=== PATIENT | male | born 1955 | race Caucasian/White ===

== ENCOUNTER 2018-05-22 19:28 | Observation (INO) ==
--- NOTE | 2018-05-22 20:04 | Emergency Department Note ---
Disposition Clinical Impression: Shortness of breath Disposition: Still a Patient Condition: Fair Reasons to Return/Additional Instructions: Referrals: Joe Kovacs DO [Primary Care Provider] - Time of Disposition: 21:09 SOB HPI - General Chief Complaint: ED Shortness of Breath/Dyspnea Stated Complaint: REG Time Seen by Provider: 05/22/18 19:36 Source: patient Limitations: no limitations Nursing Notes Reviewed: Yes Vital Signs Reviewed: Yes - History of Present Illness 63 year old male presents for difficulty breathing "on the right side." Patient states that on 3 days ago, he was pulled trash out of the garbage and felt a rip. Since, he's had difficulty laying on right side and had difficulty breathing. Today, patient was sitting after eating when shortness of breath worsened suddenly. Patient's made him come to ED because he has history of DVT 4 years ago. He is not on a blood thinner. Patient states that shortness of breath worsens with deep breathing, movement, or pressure to the right side of his back. Describes sharp pain 7-8/10. States that today, pain radiated from right infrascapular region up to right shoulder. Today, patient had shortness of breath with climbing stairs. Patient is not sure if he felt short of breath due to pain from moving or from the exertion of climbing stairs. Tried tylenol which helped. Denies leg swelling, cough, hemoptysis, chest pain, fever/chills, leg pain, orthopnea, PND. Medical history of DVT in left leg 4 years ago. Denies any other medical history. - Related Data Previous Rx's Medication Instructions Recorded Cyclobenzaprine [Flexeril] 10 mg PO HS #15 tablet 09/05/15 Hydrocodone/Acetaminophen [[place] 1 tab PO TID PRN #4 tab 09/05/15 5-325 Tablet] Ondansetron ODT [Zofran ODT] 4 mg SL Q6HR #15 tab.rapdis 08/10/16 Allergies Allergy/AdvReac Type Severity Reaction Status Date / Time Hydromorphone [From Dilaudid] Allergy Vomiting Verified 08/10/16 05:58 Penicillins [PCN] Allergy Rash Verified 08/10/16 05:58 Constitutional: Denies: fever, chills Eyes: Denies: eye pain, eye discharge ENT ED: Denies: ear pain, throat pain Cardiovascular: Denies: chest pain, palpitations Respiratory: Reports: dyspnea. Denies: cough Gastrointestinal: Denies: abdominal pain, nausea Genitourinary: Denies: urgency, dysuria Musculoskeletal: Reports: back pain. Denies: neck pain Integumentary: Denies: rash, abrasion Neurological: Denies: headache, weakness Past Medical History - Past Medical History Medical history: Reports: DVT, hyperlipidemia, hypertension Psychiatric history: Reports: no psych history - Social History Smoking Status: Never smoker Smokeless Tobacco Status: No Alcohol use: Reports: none Drug use: Reports: none Physical Exam - General Limitations: no limitations General appearance: alert - Head Head exam: atraumatic, normocephalic - Eye Eye exam: Present: PERRL, EOMI - ENT ENT exam: normal oropharynx - Neck Neck exam: Present: normal inspection - Chest Chest inspection: Present: normal inspection, symmetric chest wall rise. Absent: tenderness - Respiratory Respiratory exam: Present: normal lung sounds bilaterally. Absent: respiratory distress - Cardiovascular Cardiovascular exam: Present: regular rate, normal rhythm - Abdominal Exam Abdominal exam: Present: soft, Non-Tender, normal bowel sounds. Absent: distention, guarding, rebound, rigidity - Extremities Exam Extremities exam: Present: normal inspection. Absent: tenderness, pedal edema, joint swelling - Back Exam Back exam: Present: normal inspection. Absent: tenderness, muscle spasm - Neurological Exam Neurological exam: Present: alert, oriented X3 - Skin Skin exam: Present: warm, dry, intact, normal color Course Course Narrative: 63 year old male with history of DVT (not on a blood thinner) presents for difficulty breathing. Patient states it started 3 days ago when he pulled trash out and felt a rip in his right back. Difficulty breathing worsened suddenly today while sitting. Pain is worse with deep breathing, movement, and with pressure to the right back. Patient is alert and oriented and hemodynamically stable. Respiratory rate of 18 and oxygen saturation 100% on room air. Patient does not appear to be in respiratory distress. Physical exam is unremarkable. Back appears normal. Pain is not reproduced with palpation to right infrascapular region or to the right shoulder. Lungs are clear. Will check CXR, D-dimer, and EKG. - Reevaluation(s) Reevaluation #1: EKG shows no acute ischemic changes. CXR is negative. D-dimer is elevated at 4904. Will order CTA chest. Will sign out to night team. Time: 21:00 Vital Signs Temperature 98.4 F 05/22/18 19:31 Pulse Rate 99 05/22/18 19:31 Respiratory Rate 18 05/22/18 19:31 Blood Pressure 143/93 05/22/18 19:31 O2 Sat by Pulse Oximetry 100 05/22/18 19:31 Temperature 98.4 F 05/22/18 19:40 Pulse Rate 99 05/22/18 19:40 Respiratory Rate 18 05/22/18 19:40 Blood Pressure 143/93 05/22/18 19:40 O2 Sat by Pulse Oximetry 100 05/22/18 19:40 Oxygen Delivery Oxygen Delivery Room Air Shortness of Breath/Dyspnea - MDM Narrative Medical decision making narrative: Chest X-Ray 05/22/18 20:05 IMPRESSION: Patchy right basilar opacity likely atelectasis. D/ / Marisela Rose MD / Marisela Rose MD Interpreting Provider: Marisela Rose MD - Medical Records Medical records reviewed: Yes I reviewed the patient's medical records. - Lab Data Lab results reviewed: Yes I reviewed the patient's lab results. - Radiology Data Radiology results reviewed: Yes I reviewed the patient's radiology results. - EKG Data EKG attestation: Yes I reviewed and interpreted this EKG. EKG results narrative: EKG 05/22/18 19:38. Sinus rhythm. Heart rate 81. No ST segment elevation or depression. No significant change from prior EKG 09/29/13.
--- NOTE | 2018-05-22 20:07 | Emergency Department Note ---
Disposition Clinical Impression: Muscle strain, Shortness of breath Disposition: Still a Patient Condition: Good Reasons to Return/Additional Instructions: Referrals: Joe Kovacs DO [Primary Care Provider] - Forms: ED Satisfaction Letter General Adult HPI - General Chief complaint: ED Shortness of Breath/Dyspnea Stated complaint: REG Time Seen by Provider: 05/22/18 19:36 Source: patient Limitations: no limitations - History of Present Illness Pain Scale: 7 - Related Data Previous Rx's Medication Instructions Recorded Cyclobenzaprine [Flexeril] 10 mg PO HS #15 tablet 09/05/15 Hydrocodone/Acetaminophen [[place] 1 tab PO TID PRN #4 tab 09/05/15 5-325 Tablet] Ondansetron ODT [Zofran ODT] 4 mg SL Q6HR #15 tab.rapdis 08/10/16 Allergies Allergy/AdvReac Type Severity Reaction Status Date / Time Hydromorphone [From Dilaudid] Allergy Vomiting Verified 08/10/16 05:58 Penicillins [PCN] Allergy Rash Verified 08/10/16 05:58 Past Medical History - Past Medical History Medical history: Reports: DVT, hyperlipidemia, hypertension Psychiatric history: Reports: no psych history - Social History Smoking Status: Never smoker Smokeless Tobacco Status: No Alcohol use: Reports: none Drug use: Reports: none Physical Exam - General Limitations: no limitations General appearance: alert Course Vital Signs Temperature 98.4 F 05/22/18 19:31 Pulse Rate 99 05/22/18 19:31 Respiratory Rate 18 05/22/18 19:31 Blood Pressure 143/93 05/22/18 19:31 O2 Sat by Pulse Oximetry 100 05/22/18 19:31 Temperature 98.4 F 05/22/18 19:40 Pulse Rate 99 05/22/18 19:40 Respiratory Rate 18 05/22/18 19:40 Blood Pressure 143/93 05/22/18 19:40 O2 Sat by Pulse Oximetry 100 05/22/18 19:40 Oxygen Delivery Oxygen Delivery Room Air Medical Decision Making - Lab Data Lab Results 05/22/18 Range/Units 20:16 D-Dimer 4904 H (0-500) ng/mLFEU Attestation Statement - Attestation Attestation: I examined this patient and my medical decision-making was reviewed with the RADIOGRAPHER MAMMOGRAPHER/PA/Advanced Practice Nurse/Resident Physician. I agree with the documented findings, disposition and treatment plan as described except to the extent set forth below. Patient was taking out the trash on Saturday and thought that he strained his flank area and now when he lays down he does have pain there. Worse with breathing. Has had some dyspnea with exertion since that time. No orthopnea or paroxysmal nocturnal dyspnea. I am not able to reproduce the pain with palpation but it does occur with the patient does have range of motion of the torso. His EKG shows normal sinus rhythm with a rate of 81 bpm without evidence of ischemic change. D-dimer was ordered as well as a chest x-ray. Results are pending. Likely this is musculoskeletal in etiology. 2006 D-dimer is positive. CTA is ordered. No labs are necessary at this time. I did discuss this with air conditioning service technician and they will come over and get the patient. Care will be transitioned to Dr. Karen willams at change of shift 2110
[2018-05-22] MEDS ORDERED: Isovue-370 500 ML INFUS..BTL IV ONE (20:52)
[2018-05-22] MEDS ORDERED: *HR* Heparin 5,000 UNIT/ML VIAL IVP ONE (21:57)
[2018-05-22] MEDS ORDERED: *HR* Heparin 5,000 UNIT/ML VIAL IVP PRN ×2 (21:57)
[2018-05-22] MEDS ORDERED: Heparin 25,000 UNIT/500 ML D5W 25,000 UNIT/500 ML BAG IVC SCH (22:00)
[2018-05-22 22:06] LABS: INR 1.2
[2018-05-22 22:07] LABS: Basophils % 0.4 %; Eosinophils # 0.2 K/mcL (0.0-0.6); Eosinophils % 1.9 %; Hematocrit 41.1 % (37.5-50.1); Hemoglobin 13.5 g/dL (12.9-16.9); Immature Granulocytes % 0.1 % (0-4); Lymphocytes # 1.3 K/mcL (0.6-4.6); Lymphocytes % 12.4 %; Mean Corpuscular HGB Conc 32.8 g/dL (31.6-35.5); Mean Corpuscular Hemoglobin 31.2 pg (28.0-33.3); Mean Corpuscular Volume 94.9 fL (83.0-100.0); Mean Platelet Volume 11.5 fL (9.4-12.4); Monocytes % 9.7 %; Neutrophils # 7.9 K/mcL (1.6-8.9); Platelet Count 182 K/mcL (140-400); Red Blood Count 4.33 M/mcL (4.19-5.50); Red Cell Distribution Width 12.3 % (11.5-14.5); Segmented Neutrophils % 75.5 %
[2018-05-22 22:08] LABS: Activated Partial Thrombo Time 31.1 Seconds (26.0-36.0)
[2018-05-22 22:19] LABS: BUN/Creatinine Ratio 13 (6-26); Blood Urea Nitrogen 14 mg/dL (8-23); Calcium 9.3 mg/dL (8.6-10.3); Carbon Dioxide 26 mEq/L (23-29); Chloride 101 mEq/L (98-107); Glucose 153 mg/dL (70-105); Osmolality,Calculated 282 (280-300); Potassium 4.2 mEq/L (3.5-5.1); Sodium 134 mEq/L (136-145); Troponin I < 0.03 ng/mL (< 0.04); eGFR For Non-African Americans > 60 (> 60)
--- NOTE | 2018-05-22 22:53 | Emergency Department Note ---
Disposition Clinical Impression: Exertional dyspnea Pulmonary embolism Qualifiers: Pulmonary embolism type: other Chronicity: acute Acute cor pulmonale presence: without acute cor pulmonale Qualified Code(s): I26.99 - Other pulmonary embolism without acute cor pulmonale Disposition: Admitted As Inpatient Condition: Good Time of Disposition: 22:54 General Adult HPI - General Chief complaint: ED Shortness of Breath/Dyspnea Stated complaint: REG Time Seen by Provider: 05/22/18 19:36 Source: patient Limitations: no limitations Nursing Notes Reviewed: Yes Vital Signs Reviewed: Yes - History of Present Illness HPI Narrative: Patient is a 63-year-old male signed out by the night team for rule out. Pulmonary embolism. Upon talking to the patient he states that his symptoms started on Saturday in which she was taking the trash out and as he was lifting a trash can he felt a sudden sharp-like pain in his right chest. He states since that time the pain has been worsening and he is also noted he noticed associated exertional dyspnea when he has been taking the stairs at work. This prompted him to come in to be evaluated. Upon further discussions with the patient he does not have any history of recent surgery, he does have a history of provoked DVT from a leg injury 4 years ago, and also has a history of recent travels to [facility] requiring approximately a 6 hour long car ride round-trip. Pain Scale: 7 - Related Data Home Medications Medication Instructions Recorded Confirmed Multivit-Min/FA/Lycopen/Lutein [A 1 tab PO DAILY 05/22/18 05/22/18 Thru Z [facility] Multivit Tab] Omeprazole [PriLOSEC] 20 mg PO DAILY 05/22/18 05/22/18 Previous Rx's Medication Instructions Recorded Rivaroxaban [Xarelto] 1 dose PO AD 30 Days #1 pack 05/23/18 Allergies Allergy/AdvReac Type Severity Reaction Status Date / Time Hydromorphone [From Dilaudid] Allergy Vomiting Verified 08/10/16 05:58 Penicillins [PCN] Allergy Rash Verified 08/10/16 05:58 All systems ED: reviewed and negative except as stated. Review of Systems: As Per HPI Constitutional: Denies: fever, chills Eyes: Denies: eye pain, eye discharge ENT ED: Denies: ear pain, throat pain Cardiovascular: Denies: chest pain, palpitations Respiratory: Reports: dyspnea. Denies: cough Gastrointestinal: Denies: abdominal pain, nausea Genitourinary: Denies: urgency, dysuria Musculoskeletal: Reports: back pain. Denies: neck pain Integumentary: Denies: rash, abrasion Neurological: Denies: headache, weakness Past Medical History - Past Medical History Attestation: Yes The following information was validated with the patient. Medical history: Reports: DVT, hyperlipidemia, hypertension Psychiatric history: Reports: no psych history - Social History Smoking Status: Never smoker Smokeless Tobacco Status: No Alcohol use: Reports: none Drug use: Reports: none Physical Exam CONSTITUTIONAL: Well-appearing; well-nourished; A&O X 3, in no apparent distress HEAD: Normocephalic; atraumatic EYES: PERRL, no scleral icterus NOSE: The nose is normal in appearance without rhinorrhea NECK: No JVD or distended neck veins RESP: Normal chest excursion with respiration; breath sounds clear and equal bilaterally; no wheezes, rhonchi, or rales CARD: Regular rhythm, without murmurs, rub or gallop ABD: Non-distended; non-tender, soft, without rigidity, rebound or guarding,no pulsatile mass CHEST: No pain with palpation SKIN: Normal for age and race; warm and dry without diaphoresis ; no apparent lesions EXTREMITIES: Pulses are 2 plus and equal times 4 extremities, no peripheral edema or calf muscle pain - General Limitations: no limitations General appearance: alert Course Course Narrative: Patient signed out with pending CTA of the chest. CTA resulted in showed 3 areas of concern for pulmonary embolism. The patient was heparinized and consultation was made with the hospitalist for admission for further treatment of his pulmonary embolism. Otherwise patient's labs were unremarkable and he continues to remain hemodynamically stable. Discussed the plan with the patient and he agrees. Patient was admitted to Dr. Mendoza. Vital Signs Temperature 98.4 F 05/22/18 19:31 Pulse Rate 99 05/22/18 19:31 Respiratory Rate 18 05/22/18 19:31 Blood Pressure 143/93 05/22/18 19:31 O2 Sat by Pulse Oximetry 100 05/22/18 19:31 Temperature 98.0 F 05/23/18 12:13 Pulse Rate 71 05/23/18 12:13 Respiratory Rate 24 05/23/18 07:57 Blood Pressure 119/75 05/23/18 12:13 O2 Sat by Pulse Oximetry 96 05/23/18 12:13 Oxygen Delivery Oxygen Delivery Room Air Medical Decision Making - Medical Records Medical records reviewed: Yes I reviewed the patient's medical records. - Lab Data Lab results reviewed: Yes I reviewed the patient's lab results. Result diagrams: 05/22/18 20:16 05/22/18 20:16 Lab Results 05/22/18 05/22/18 05/22/18 Range/Units 20:16 20:16 20:16 WBC 10.4 (4.3-11.1) K/mcL RBC 4.33 (4.19-5.50) M/mcL Hgb 13.5 (12.9-16.9) g/dL Hct 41.1 (37.5-50.1) % MCV 94.9 (83.0-100.0) fL MCH 31.2 (28.0-33.3) pg MCHC 32.8 (31.6-35.5) g/dL RDW 12.3 (11.5-14.5) % Plt Count 182 (140-400) K/mcL MPV 11.5 (9.4-12.4) fL Immature Gran % 0.1 (0-4) % Seg Neutrophils % 75.5 % Lymphocytes % 12.4 % Monocytes % 9.7 % Eosinophils % 1.9 % Basophils % 0.4 % Neutrophils # 7.9 (1.6-8.9) K/mcL Lymphocytes # 1.3 (0.6-4.6) K/mcL Monocytes # 1.0 (0.0-1.3) K/mcL Eosinophils # 0.2 (0.0-0.6) K/mcL Basophils # 0.0 (0.0-0.2) K/mcL PT 13.0 H (9.4-12.1) Seconds INR 1.2 APTT 31.1 (26.0-36.0) Seconds D-Dimer 4904 H (0-500) ng/mLFEU Heparin Anti-Xa, Unfract (0.30-0.70) IU/mL Sodium 134 L (136-145) mEq/L Potassium 4.2 (3.5-5.1) mEq/L Chloride 101 (98-107) mEq/L Carbon Dioxide 26 (23-29) mEq/L BUN 14 (8-23) mg/dL Creatinine 1.05 (0.70-1.30) mg/dL Est GFR ( Amer) > 60 (> 60) Est GFR (Non-Af Amer) > 60 (> 60) BUN/Creatinine Ratio 13 (6-26) Glucose 153 H (70-105) mg/dL Calculated Osmolality 282 (280-300) Calcium 9.3 (8.6-10.3) mg/dL Troponin I < 0.03 (< 0.04) ng/mL 05/22/18 Range/Units 22:07 WBC (4.3-11.1) K/mcL RBC (4.19-5.50) M/mcL Hgb (12.9-16.9) g/dL Hct (37.5-50.1) % MCV (83.0-100.0) fL MCH (28.0-33.3) pg MCHC (31.6-35.5) g/dL RDW (11.5-14.5) % Plt Count (140-400) K/mcL MPV (9.4-12.4) fL Immature Gran % (0-4) % Seg Neutrophils % % Lymphocytes % % Monocytes % % Eosinophils % % Basophils % % Neutrophils # (1.6-8.9) K/mcL Lymphocytes # (0.6-4.6) K/mcL Monocytes # (0.0-1.3) K/mcL Eosinophils # (0.0-0.6) K/mcL Basophils # (0.0-0.2) K/mcL PT (9.4-12.1) Seconds INR APTT (26.0-36.0) Seconds D-Dimer (0-500) ng/mLFEU Heparin Anti-Xa, Unfract 0.01 L (0.30-0.70) IU/mL Sodium (136-145) mEq/L Potassium (3.5-5.1) mEq/L Chloride (98-107) mEq/L Carbon Dioxide (23-29) mEq/L BUN (8-23) mg/dL Creatinine (0.70-1.30) mg/dL Est GFR ( Amer) (> 60) Est GFR (Non-Af Amer) (> 60) BUN/Creatinine Ratio (6-26) Glucose (70-105) mg/dL Calculated Osmolality (280-300) Calcium (8.6-10.3) mg/dL Troponin I (< 0.04) ng/mL - Radiology Data Radiology results reviewed: Yes I reviewed the patient's radiology results. Chest X-Ray 05/22/18 20:05 IMPRESSION: Patchy right basilar opacity likely atelectasis. D/ / Marisela Rose MD / Marisela Rose MD Interpreting Provider: Marisela Rose MD Chest CTA 05/22/18 20:50 IMPRESSION: Findings compatible pulmonary embolism involving the segmental and lobar branches of the pulmonary artery in the lower lobes and right upper lobe. 0.4 cm pulmonary nodule in the right upper lobe. Hiatal hernia. Findings were discussed with DR VALENCIA at 9:55 pm on 05/22/2018. RECOMMENDATIONS: Fleischner Society guidelines for follow-up and management of incidentally detected pulmonary nodules: Single Solid Nodule: Nodule size less than 6 mm In a low-risk patient, no routine follow-up. In a high-risk patient, optional CT at 12 months. - Low risk patients include individuals with minimal or absent history of smoking and other known risk factors. - High risk patients include individuals with a history or smoking or known risk factors. Radiology 2017 http://pubs.rsna.org/doi/full/10.1148/radiol.[email or web address] D/ / Ayan Dueñas MD / Ayan Dueñas MD Interpreting Provider: Ayan Dueñas MD Echocardiogram 05/23/18 05:27 Impressions: LVEF 60-65%. Normal LV chamber size, wall thickness and function. Mild left ventricular diastolic dysfunction. Normal right ventricular structure and function. Unable to estimate RVSP due to lack of TR jet. No significant valvular dysfunction. Left Ventricular Wall Motion: Rest Echo Findings All wall segments showed normal motion. Findings: Study Quality * Technically adequate exam. ECG Findings * Normal sinus rhythm. Left Ventricle * LVEF 60-65%. * Normal LV chamber size, wall thickness and function. * Mild left ventricular diastolic dysfunction. Right Ventricle * Normal right ventricular structure and function. Left Atrium * Mildly dilated left atrium. Right Atrium * Normal right atrial size. Aortic Valve * Aortic valve not well visualized. * No aortic regurgitation. * No aortic stenosis. Mitral Valve * Normal mitral valve structure and function. * No mitral regurgitation. * No mitral stenosis. Tricuspid Valve * Normal tricuspid valve structure and function. * No tricuspid regurgitation. * Unable to estimate RVSP due to lack of TR jet. Pulmonic Valve * Pulmonic valve not well visualized. Aorta * Normally sized aortic root. Pericardium * The pericardium appears normal. IVC * The IVC is not well evaluated. Pulmonary Artery * Pulmonary artery not well visualized. - EKG Data EKG #1 EKG attestation: Yes I reviewed and interpreted this EKG. EKG results narrative: EKG showed sinus rhythm at a rate of 81 bpm. Normal EKG. Performed at 1938. Attestation Statement - Attestation Attestation: I examined this patient and my medical decision-making was reviewed with the Resident Physician, Dr. Franklin. I agree with the documented findings, disposition and treatment plan as described except to the extent set forth below. Patient is a 63-year-old white male who presented to the emergency Department with complaints of right-sided chest pain and exertional dyspnea. Patient was initially evaluated and worked up by Dr. Forrest who signed out the patient pending CTA of the chest with concerns for possible pulmonary embolus. Patient at the time of sign out was hemodynamically stable and remains such, in no acute distress and no signs of respiratory distress. I agree with patient's physical exam findings as documented. Vital signs are stable. Review of earlier EKG shows a normal sinus rhythm without acute ischemia. We were contacted by the radiologist as the patient had findings of lobar and segmental PE in the right upper, right lower, and left lower lobes. No labs with the exception of d-dimer had been done initially by Dr. Forrest, so we added laboratory panel including CBC, CMP, troponin and coags. Patient's labs were within normal limits and we contacted the hospitalist for admission and initiated heparin protocol. Patient remains hemodynamically stable and resting comfortably at this time patient will be admitted to the hospitalist service.
[2018-05-23] MEDS ORDERED: Naloxone 0.4 MG/ML INJ IVP PRN (05:27)
[2018-05-23] MEDS ORDERED: traMADol 50 MG TABLET PO PRN (05:27)
[2018-05-23] MEDS ORDERED: Acetaminophen 325 MG TABLET PO PRN (05:27)
[2018-05-23] MEDS ORDERED: 0.9 % Sodium Chloride 1,000 ML IVC SCH (05:30)
--- NOTE | 2018-05-23 06:05 | Internal Med History&Physical ---
Date of Encounter: 05/23/18 Time of Encounter: 05:00 Internal Medicine - H&P: HPI Chief complaint: chest pain Admitted From: Emergency Dept Plans for Post Hospital Care: Home History of present illness: Mr. Banks is a 63 year old male who presents to the ER tonight with complaints of pleuritic-type chest pain and splinting. Symptoms started shortly after a prolonged travel by automobile a few days ago. He has a history of DVT several years ago after traumatic injury to his left leg requiring surgery. Once he developed the pleuritic chest pain above, his made him come to ER for concerns of possible PE. In the ER, he had an elevated d-dimer which prompted CT angiogram of the chest. CT angiogram of the chest confirmed bilateral lower lobe PE and right upper lobe PE. He was started on heparin drip and admitted to hospitalist service. Upon my assessment of the patient, he confirms above history. This PE was unprovoked. His initial DVT several years ago was provoked from traumatic injury to his leg. He has never had hypercoagulable workup. With his initial DVT, he had a Mel filter placed, and he was started on Coumadin therapy. He was then later switched to Xarelto and completed 6 months course. He did have his Mel filter removed. Since then, he has not been on anticoag ulation and has had no further DVT or PE until now. Family history is negative for any recurrent DVT or PE. He does not smoke. Past Med Surg Social Fam HX - Past Medical History Attestation: Yes The following information was validated with the patient. Source: patient, old records reviewed, obtained from family Medical history: DVT, hyperlipidemia Psychiatric history: no psych history - Past Surgical History Surgical History: appendectomy, cholecystectomy, orthopedic, other, tonsilectomy Additional surgical history: fundoplasty. esophageal myotomy. lysis of abdominal adhesions - Social History Smoking Status: Never smoker Smokeless Tobacco Status: No Alcohol use: none Drug use: none Current living situation: Home, With Family Activity Level: Independent ambulation Recent Out of Country Travel Within the Last 8 Weeks: No - Family History Mother Hx Family Cancer: Yes Hx Family Endocrine Disorder: Yes Father Hx Family Cardiac Disorders: Yes Internal Medicine - H&P: Meds Multivit-Min/FA/Lycopen/Lutein [A Thru Z Select Multivit Tab] 1 tab PO DAILY 05/22/18 [History] Omeprazole [PriLOSEC] 20 mg PO DAILY 05/22/18 [History] Allergy/AdvReac Type Severity Reaction Status Date / Time Hydromorphone [From Dilaudid] Allergy Vomiting Verified 08/10/16 05:58 Penicillins [PCN] Allergy Rash Verified 08/10/16 05:58 - Constitutional Constitutional: no chills, no fever(s), no night sweats - EENT Eyes: no blurry vision, no change in vision Ears: no ear pain Nose, mouth and throat: no nasal congestion, no sore throat - Cardiovascular Cardiovascular ROS IM: chest pain, dyspnea, dyspnea on exertion, no lightheadedness, no palpitations, no paroxysmal nocturnal dyspnea, no syncope - Respiratory Respiratory: dyspnea, dyspnea on exertion, pain on inspiration, no cough, no hemoptysis - Gastrointestinal Gastrointestinal: no abdominal pain, no diarrhea, no hematemesis, no hematochezia, no melena, no nausea, no vomiting - Genitourinary Genitourinary ROS male: no dysuria, no flank pain, no hematuria - Musculoskeletal Musculoskeletal ROS IM: no arthralgias, no back pain - Integumentary Integumentary IM: no rash, no jaundice - Neurological Neurological ROS: no dizziness, no focal weakness, no frequent falls, no headache(s) - Psychiatric Psychiatric: no anxiety, no depression - Endocrine Endocrine IM: no polydipsia, no polyuria - Allergic/Immunologic Allergic/Immunologic: no GI upset with certain foods - Constitutional Vitals: Temp Pulse Resp BP Pulse Ox 98.2 F 70 15 121/79 95 05/23/18 05:13 05/23/18 05:13 05/23/18 05:13 05/23/18 05:13 05/23/18 05:13 General appearance: Present: cooperative, mild distress, A&O X 3, pleasant, answers questions appropriately Exam: + splinting with deep inspiration - Head Head exam: Present: atraumatic, normal inspection - Eye Eye exam: Present: EOMI, PERRL. Absent: scleral icterus Pupils: Present: normal accommodation - ENT ENT exam: Present: mucous membranes dry, normal exam, normal oropharynx - Neck Neck exam general surgery: Present: full ROM. Absent: tenderness, nuchal rigidity, thyromegaly - Respiratory Respiratory exam: Present: CTAB. Absent: chest wall tenderness, rales, rhonchi, wheezes Additional comments: + splinting with deep inspiration - Cardiovascular Cardiovascular exam: Present: RRR, +S1, +S2. Absent: diastolic murmur, systolic murmur - GI/Abdominal GI/Abdominal exam: Present: normal bowel sounds, soft. Absent: guarding, hepatomegaly, mass, splenomegaly, tenderness - Extremities Exam Extremities exam: Present: full ROM, normal capillary refill, warm, radial pulses palpable and symmetrical. Absent: calf tenderness - Back Exam Back exam: Absent: CVA tenderness (L), CVA tenderness (R) - Neurological Exam Neurological exam: Present: alert, CN II-XII intact, oriented X3, no focal deficits - Psychiatric Psychiatric exam: Present: normal affect, normal mood - Skin Skin exam: Present: dry, intact, warm Internal Med - H&P Results - Labs CBC & Chem 7: 05/22/18 20:16 05/22/18 20:16 Labs: Short CBC 05/22/18 Range/Units 20:16 WBC 10.4 (4.3-11.1) K/mcL Hgb 13.5 (12.9-16.9) g/dL Hct 41.1 (37.5-50.1) % Plt Count 182 (140-400) K/mcL Neutrophils # 7.9 (1.6-8.9) K/mcL BMP 05/22/18 20:16 Sodium 134 L Potassium 4.2 Chloride 101 Carbon Dioxide 26 BUN 14 Creatinine 1.05 Glucose 153 H Calcium 9.3 Cardiac Enzymes 05/22/18 Range/Units 20:16 Troponin I < 0.03 (< 0.04) ng/mL - EKG Data -: EKG Interpreted by Myself - EKG Data Prior EKG available for review: no EKG comments: 05/23/18 06:10 NSR; no acute ST-T changes - Impressions ITS Impressions Chest X-Ray 05/22/18 20:05 IMPRESSION: Patchy right basilar opacity likely atelectasis. D/ / Marisela Rose MD / Marisela Rose MD Interpreting Provider: Marisela Rose MD Chest CTA 05/22/18 20:50 IMPRESSION: Findings compatible pulmonary embolism involving the segmental and lobar branches of the pulmonary artery in the lower lobes and right upper lobe. 0.4 cm pulmonary nodule in the right upper lobe. Hiatal hernia. Findings were discussed with DR VALENCIA at 9:55 pm on 05/22/2018. RECOMMENDATIONS: Fleischner Society guidelines for follow-up and management of incidentally detected pulmonary nodules: Single Solid Nodule: Nodule size less than 6 mm In a low-risk patient, no routine follow-up. In a high-risk patient, optional CT at 12 months. - Low risk patients include individuals with minimal or absent history of smoking and other known risk factors. - High risk patients include individuals with a history or smoking or known risk factors. Radiology 2017 http://pubs.rsna.org/doi/full/10.1148/radiol.8058368397 D/ / Ayan Dueñas MD / Ayan Dueñas MD Interpreting Provider: Ayan Dueñas MD - Diagnostic Studies CT scan - chest Additional comments: Report reviewed: Bilateral PE noted - Assessment and plan (1) Pulmonary embolism Current Visit: Yes Status: Acute Assessment and plan: 1. Patient currently on Heparin drip. 2. Will order ECHO and BLE Dopplers. 3. Can likely switch to NOVEL anticoagulant later today per HEM/ONC approval. 4. Consult HEM/ONC for guidance of anti-coagulation and for proper follow up and hypercoagulable testing. Qualifiers: Pulmonary embolism type: other Chronicity: acute Acute cor pulmonale presence: without acute cor pulmonale Qualified Code(s): I26.99 - Other pulmon ruddy embolism without acute cor pulmonale (2) GERD (gastroesophageal reflux disease) Current Visit: Yes Status: Chronic Assessment and plan: 1. Continue home dose of PPI. 2. Monitor symptoms. Qualifiers: Esophagitis presence: esophagitis presence not specified Qualified Code(s): K21.9 - Gastro-esophageal reflux disease without esophagitis (3) Exertional dyspnea Current Visit: Yes Status: Acute Assessment and plan: 1. Will trend troponins, EKG's, and order ECHO. 2. Cardiac work-up as outpatient if necessary once PE symptoms stabilize. (4) DVT prophylaxis Current Visit: Yes Status: Acute Assessment and plan: 1. Heparin drip as above.
[2018-05-23] MEDS ORDERED: Multivit/Ca/Min/Fe/FA 1 TAB TABLET PO SCH (09:00)
[2018-05-23] MEDS ORDERED: Perflutren Lipid Microsphere 1.3 ML in 0.9 % Sodium Chloride 8.7 ML IVP ONE (11:37)
[2018-05-23] MEDS ORDERED: *HR* Rivaroxaban 10 MG TABLET PO SCH (12:08)
[2018-05-23] MEDS ORDERED: *HR* Rivaroxaban 15 MG TABLET PO SCH (12:15)
[2018-05-23 12:17] VITALS: BP 119/75
--- NOTE | 2018-05-23 12:46 | Event Note ---
Date of Encounter: 05/23/18 Time of Encounter: 12:44 Patient seen and evaluated. reports no distress. admitted due to acute b/l PE. discontinue Heparin drip, started on Xarelto 25mg/PO BID. Hem&Onc consulted by night team. Pending evaluation.
--- NOTE | 2018-05-23 14:08 | Discharge Summary ---
- NOTES TO OUTPATIENT PROVIDER Notes to Outpatient Provider: Follow-up with hematology oncology within a week of hospital discharge. Orders not resulted at time of discharge: Pending orders 05/22/18 21:55 ECG 12 lead ECG [ECG] Stat 05/23/18 05:27 EV venous imaging LE BI Routine 05/23/18 18:11 Troponin I Q6H 05/24/18 04:00 Basic Metabolic Panel AM 0400 Complete Blood Count [HEME] AM 0400 Magnesium AM 0400 Date of Encounter: 05/23/18 Time of Encounter: 14:04 - Discharge Diagnosis (1) Pulmonary embolism Priority: Primary Status: Acute Qualifiers: Pulmonary embolism type: other Chronicity: acute Acute cor pulmonale presence: without acute cor pulmonale Qualified Code(s): I26.99 - Other pulmonary embolism without acute cor pulmonale (2) Exertional dyspnea Priority: Secondary Status: Resolved (3) GERD (gastroesophageal reflux disease) Priority: Secondary Status: Chronic Qualifiers: Esophagitis presence: esophagitis presence not specified Qualified Code(s): K21.9 - Gastro-esophageal reflux disease without esophagitis (4) DVT prophylaxis Priority: Secondary Status: Acute Hospital course: Mr. Banks is a 63 year old male past medical history of DVT, hyperlipidemia. Patient presented to the emergency room complaining of pleuritic chest pain. Patient reported recent travel of 9 hours long. A CTA of the chest was done which confirmed bilateral lower lobe pulmonary embolism and right upper lobe pulmonary embolism. Patient admitted to the hospital and started on heparin drip. Medications switch to Xarelto 15mg/PO BID for 21 days, and to continue Xarelto 20mg/po daily afterwards. Heme&Onc consulted recommended to follow up with them outpatient. Patient is hemodynamically stable to be discharged home. - Time Spent with Patient Total time spent providing and/or coordinating discharge services: Less than 30 minutes - Discharge Medications Prescriptions: Rivaroxaban [Xarelto] 1 dose PO AD 30 Days #1 pack Home Medications: Multivit-Min/FA/Lycopen/Lutein [A Thru Z Select Multivit Tab] 1 tab PO DAILY 05/22/18 [History] Omeprazole [PriLOSEC] 20 mg PO DAILY 05/22/18 [History] Rivaroxaban [Xarelto] 1 dose PO AD 30 Days #1 pack 05/23/18 [Rx] Allergies/Adverse Reactions: Allergy/AdvReac Type Severity Reaction Status Date / Time Hydromorphone [From Dilaudid] Allergy Vomiting Verified 08/10/16 05:58 Penicillins [PCN] Allergy Rash Verified 08/10/16 05:58 Date of admission: 05/22/18 23:53 Primary care physician: Joe Kovacs Consults: 05/23/18 05:27 Consult to Oncology [CONS] Routine Consulting Provider: [facility] Reason for Consult: recurrent VTE, now w PE -- unprovoked Call Completed: No - Constitutional Vitals: Temp Pulse Resp BP Pulse Ox 98.0 F 71 24 119/75 96 05/23/18 12:13 05/23/18 12:13 05/23/18 07:57 05/23/18 12:13 05/23/18 12:13 General appearance: Present: cooperative, mild distress, A&O X 3, pleasant, answers questions appropriately Exam: General: Alert and oriented 4. In no acute distress. Skin: Normal color, no rash, no lesions. HEENT: EOM, pupils equal, round and reactive. Cardiovascular: RRR, Normal S1 & S2, no rubs, murmurs or gallops. Lungs: Clear lungs to auscultation bilaterally, no wheezes or crackles. Abdomen: Obese, Soft, non-tender, no rigidity. Extremities: No deformity, no edema or tenderness, no joint swelling or clubbing. Neurological: Normal cognition and motor skills. Rest of the physical exam is non contributory - Patient Status Disposition: Home, Self-Care Condition: Good Functional capacity at discharge: independent ambulation Overall status at discharge: patient is back to baseline - Discharge Instructions Follow Up With: Joe Kovacs DO [Primary Care Provider] - - Diet and Activity Activity: resume usual activities as tolerated Diet: advance to your usual diet
--- NOTE | 2018-05-23 14:24 | Oncology Inp Consult Note ---
Date of Encounter: 05/23/18 Time of Encounter: 13:30 Assessment and Plan (1) Pulmonary embolism Status: Acute Assessment and plan: CT of the chest reveals findings compatible pulmonary embolism involving the segmental and lobar branches of the pulmonary artery in the lower lobes and right upper lobe as well as 0.4 cm pulmonary nodule in the right upper lobe. Patient appears to be mainly asymptomatic upon assessment, his pleuritic chest pain which led to his presentation has resolved O2 sat within normal limits on room air, troponin less than 0.03, he is ambulating without difficulty Preliminary lower extremity venous Doppler report reveals DVT in right ankle Peroneal Vein and left thigh Superficial Femoral, and report is pending CBC unremarkable, renal function is normal Patient has already transitioned from heparin drip to Xarelto We discussed the recommendation likely for indefinite anticoagulation in the setting of 2 provoked blood clots, this would be an ongoing discussion He does not have any children, thrombophilia workup likely not indicated given patient does not have children and that it would not appear to change treatment recommendation He was given a follow-up appointment with Dr. 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 Banks is a 63 year old male who presented to ER with complaint of pleuritic chest pain. A CTA of the chest was obtained which revealed bilateral lower lobe PE and right upper lobe PE. Patient was started on heparin drip and admitted for further management. Patient has a history of left lower extremity DVT 4 years ago following a traumatic injury to his left leg requiring surgery. He completed a course of Coumadin and Xarelto and has since been off anticoagulation. He has had a Mel filter placed which was later removed. On Saturday prior to the start of his symptoms he had a prolonged car ride to [facility] which lasted nearly 7 hours. He states he felt as though he pulled a muscle on Saturday which led to his presentation for worsening pleuritic pain with breathing. He denies shortness of breath, hemoptysis, chest pain, lower extremity erythema or edema. He is a nonsmoker. He used AndroGel about 4 years ago but stopped following his DVT. No family history significant for PE/DVT. He has no children. Past Med Surg Social Fam HX - Past Medical History Medical history: DVT, hyperlipidemia Psychiatric history: no psych history - Past Surgical History Surgical History: appendectomy, cholecystectomy, orthopedic, other, tonsilectomy Additional surgical history: fundoplasty. esophageal myotomy. lysis of abdominal adhesions - Social History Smoking Status: Never smoker Smokeless Tobacco Status: No Alcohol use: none Drug use: none - Family History Mother Hx Family Cancer: Yes Hx Family Endocrine Disorder: Yes Father Hx Family Cardiac Disorders: Yes Medications and Allergies Multivit-Min/FA/Lycopen/Lutein [A Thru Z Select Multivit Tab] 1 tab PO DAILY 05/22/18 [History] Omeprazole [PriLOSEC] 20 mg PO DAILY 05/22/18 [History] Rivaroxaban [Xarelto] 1 dose PO AD 30 Days #1 pack 05/23/18 [Rx] Allergy/AdvReac Type Severity Reaction Status Date / Time Hydromorphone [From Dilaudid] Allergy Vomiting Verified 08/10/16 05:58 Penicillins [PCN] Allergy Rash Verified 08/10/16 05:58 Constitutional: Absent: chills, fatigue, fever(s), weakness, weight loss Eyes: Absent: change in vision Nose, mouth and throat: Absent: dysphagia Cardiovascular: Absent: chest pain, palpitations Respiratory: Present: as per HPI. Absent: cough, dyspnea, hemoptysis Gastrointestinal: Absent: abdominal pain, change in bowel habits, hematemesis, hematochezia, melena, nausea, vomiting Additional comments: Denies dysuria Musculoskeletal: Absent: muscle weakness Integumentary: Absent: wounds Neurological: Absent: focal weakness, frequent falls Hematologic/Lymphatic: Present: as per HPI Oncology - Exam - Constitutional Vitals: Temp Pulse Resp BP Pulse Ox 98.0 F 71 24 119/75 96 05/23/18 12:13 05/23/18 12:13 05/23/18 07:57 05/23/18 12:13 05/23/18 12:13 General appearance: cooperative, no acute distress, no febrile - Head Head exam: Present: atraumatic - ENT ENT exam: Present: mucous membranes moist - Respiratory Respiratory exam: Present: CTAB. Absent: respiratory distress - Cardiovascular Cardiovascular exam: Present: RRR, +S1, +S2 - GI/Abdominal GI/Abdominal exam: Present: normal bowel sounds, soft. Absent: tenderness - Extremities Exam Extremities exam: Absent: calf tenderness - Neurological Exam Neurological exam: Present: alert, oriented X3, no focal deficits, strengths equal and symetr throughout - Psychiatric Psychiatric exam: Present: normal affect, normal mood - Skin Skin exam: Present: dry, intact, normal color, warm Consult Discharge Plan - Plan Instructions: Rivaroxaban (By mouth), Pulmonary Embolism (DC) Referrals: Catalino Stephens MD [Partnered Physician] - 06/09/18 1:30 pm Joe Kovacs DO [Primary Care Provider] - 05/29/18 3:00 pm Prescriptions: Rivaroxaban [Xarelto] 1 dose PO AD 30 Days #1 pack Inpatient Charges Provider: Abi Gore CNP Consult - Observation: [id number]
--- NOTE | 2018-05-23 19:49 | Electrocardiograph Report ---
[place] [id number] Test Date: 2018-05-22 Pat Name: Ken Hooksett Department: EXAM8 Room: 2N2 Gender: M [employer]: : 1955 Requested By: Candie Talley Order Number: [id number] Reading MD: Ayo Torres Measurements Intervals [place] Rate: 81 P: 51 [place]: 116 QRS: 30 QRSD: 88 T: 41 QT: 360 QTc: 418 Interpretive Statements Sinus rhythm Electronically Signed On 05-23-2018 19:48:28 EDT by Ayo Torres
== END 2018-05-23 15:45 | disposition home or self-care (01) ==
LOC: 2NENU 19:28 → EMEROOARM 19:28 → 2NENU 05-23 00:08
PROVIDERS: ADMIT Family Medicine; ATTEND Family Medicine